=== PATIENT | female | born 1985 | race Caucasian/White ===

== ENCOUNTER 2017-05-02 17:35 | Outpatient (CLI) | payer OTHER ==
[~2017-05-02] VITALS: Ht 149.9 cm; Wt 51.3 kg
[2017-05-02 17:48] VITALS: BP 118/84; PULSE 107; RESP 18
[2017-05-02 17:50] VITALS: Ht 149.9 cm; Wt 51.3 kg
[2017-05-02 19:23] LABS: ADD UMIC YES; UR AMORPHOUS CRYSTAL MANY /HPF (NONE SEEN); UR ASCORBIC ACID NEGATIVE (NEGATIVE); UR BILIRUBIN (Dip) NEGATIVE (NEGATIVE); UR BLOOD (Dip) NEGATIVE (NEGATIVE); UR CLARITY TURBID (CLEAR); UR COLOR YELLOW (YELLOW); UR GLUCOSE (Dip) NEGATIVE (NEGATIVE); UR KETONES (Dip) NEGATIVE (NEGATIVE); UR LEUKOCYTE ESTERASE (Dip) NEGATIVE Leu/ul (NEGATIVE); UR NITRITE (Dip) NEGATIVE (NEGATIVE); UR RBC 0 /HPF (0-5); UR SPECIFIC GRAVITY (Dip) 1.016 (1.003-1.030); UR SQUAMOUS EPITHELIAL CELL FEW /HPF (FEW); UR TOTAL PROTEIN (Dip) NEGATIVE (NEGATIVE); UR UROBILINOGEN (Dip) NEGATIVE (NEGATIVE)
--- NOTE | 2017-05-02 19:28 | RADRPT ---
PROCEDURE: Obstetrical ultrasound CLINICAL INDICATION: back pain TECHNIQUE: Multiple sonographic images of the pelvis were obtained. The images were reviewed on a PACS workstation. COMPARISON: None FINDINGS: The cervix is not well visualized. There is a single viable intrauterine gestation. Cardiac activity is present with 134 beats per minute. There is a vertex presentation. The placenta is anterior. There is no evidence for an abruption or placenta previa. There is a subjectively normal amount of amniotic fluid. Measurements were made in order to determine age. The results are as follows (cm): BPD =6.65 HC =24.04 AC =20.47 FL =4.62 Estimated gestational age by ultrasound of approximately 25 weeks, 6 days. The estimated date of delivery by ultrasound is 08/09/2017. Estimated gestational age by LMP of approximately 24 weeks, 6 days. The estimated date of delivery by LMP is 08/16/2017. EFW = 800 grams (63rd percentile) IMPRESSION: Single viable intrauterine gestation of approximately 25 weeks, 6 days . The estimated date of delivery is 08/09/2017 . Dating by ultrasound is within 1 week of dating by LMP. Cephalic presentation. Estimated weight is 800 g which is in the 63rd percentile. Anterior placenta without evidence of an abruption. RPTAT: EE Physician Cynthia Date Time Electronically viewed and signed by Physician Cynthia on 05/02/2017 19:28 /
--- NOTE | 2017-05-02 19:30 | RADRPT ---
PROCEDURE: Retroperitoneal US. CLINICAL INDICATION: back pain TECHNIQUE: Multiple sonographic images of the retroperitoneum were obtained. The images were revi ewed on a PACS workstation. COMPARISON: No prior studies are available for comparison. FINDINGS: The right kidney measures 12.5 x 4.6 x 5.8 cm. The left kidney measures 8.5 x 5.1 x 6.4 cm. The renal parenchymal echotexture is normal. There is fullness of bilateral renal collecting systems without ananda hydronephrosis. There is no focal renal mass or calcification seen. The bladder is unremarkable. Prevoid bladder volume (mL): 127 IMPRESSION: Fullness of bilateral renal collecting systems without ananda hydronephrosis. RPTAT: EE Physician Cynthia Date Time Electronically viewed and signed by Physician Cynthia on 05/02/2017 19:30 /
--- NOTE | 2017-05-02 20:45 | TRIAGE ---
OB Triage Datetime Report Generated by CPN: 05/02/2017 20:45 Datetime: 05/02/2017 20:15 Stage of : OB Triage Datetime: 05/02/2017 20:05 Stage of : OB Triage Pain Assessment Pain Scale: 0 Pain Presence: None/Denies Datetime: 05/02/2017 19:47 Labor Evaluation Frequency: NONE Monitor Mode: External Pattern: Normal: <= 5 Contractions in 10 Minutes Resting Tone [place]: Relaxed Heart Rate FHR Baseline Rate: 140 Monitor Mode: External US Variability: Moderate 6-25 bpm Accelerations: 15X15 Decelerations: None Category: Category I Datetime: 05/02/2017 19:30 Assessment Type: Admission Assessment Maternal Assessment Level of Consciousness: Fully Conscious DTR's/Clonus: DTRs 2+; No Clonus Headache: Denies Blurred Vision: No Respiratory Effort: Unlabored; Regular Rhythm; Equal Expansion Breath Sounds, Left: Clear and Equal Breath Sounds, Right: Clear and Equal Nausea/Vomiting: Denies RUQ Epigastric Pain: Denies Lower Extremities Edema: None Degree: None Upper Extremities Edema: None Degree: None Facial Edema: None Fall Risk Assessment History of Falling: (0) No Secondary Diagnosis: (0) No Ambulatory Aid: (0) Bedrest/Nurse Assist IV Therapy: (0) No Gait: (0) Normal/Bedrest/Immobile Mental Status: (0) Oriented to Own Ability Fall Score: 0 Fall Risk Score Definition: No Risk: No action required Datetime: 05/02/2017 18:28 EGA: 24.6 Datetime: 05/02/2017 18:26 Labor Evaluation Frequency: 0 Monitor Mode: External Pattern: Normal: <= 5 Contractions in 10 Minutes Resting Tone [place]: Relaxed Heart Rate FHR Baseline Rate: 140 Monitor Mode: External US Variability: Moderate 6-25 bpm Accelerations: 15X15 Decelerations: None Category: Category I Datetime: 05/02/2017 17:58 Stage of : OB Triage Assessment Type: Admission Assessment Maternal Assessment Level of Consciousness: Fully Conscious DTR's/Clonus: DTRs 2+; No Clonus Headache: Denies Blurred Vision: No Respiratory Effort: Unlabored; Regular Rhythm; Equal Expansion Breath Sounds, Left: Clear and Equal Breath Sounds, Right: Clear and Equal Nausea/Vomiting: Denies RUQ Epigastric Pain: Denies Lower Extremities Edema: None Degree: None Upper Extremities Edema: None Degree: None Facial Edema: None Fall Risk Assessment History of Falling: (0) No Secondary Diagnosis: (0) No Ambulatory Aid: (0) Bedrest/Nurse Assist IV Therapy: (0) No Gait: (0) Normal/Bedrest/Immobile Mental Status: (0) Oriented to Own Ability Fall Score: 0 Fall Risk Score Definition: No Risk: No action required Datetime: 05/02/2017 17:54 Time of Arrival: 05/02/2017 17:52 Arrived By: Ambulatory Arrived From: Home Chief Complaint: BACK PAIN; VAGINAL ITCHING SINCE 10 DAYS Movement: Present Contractions: Denies/Absent Rupture of Membranes: Denies Vaginal Bleeding: None Vaginal Discharge: Denies Recent Sexual Intercouse: Denies Abdominal Trauma: Not Applicable Patient Complaints: Back Pain Time Provider Notified: 05/02/2017 18:30 Provider Notified: ESHAGHIAN Initial Plan: TOCO/US, EFW, RENAL U/S, U/A Datetime: 05/02/2017 17:42 Stage of : OB Triage Pain Assessment Pain Scale: 8 Pain Presence: Intermittent Pain Type: Ache Pain Location: Back Pain Relief Measures: Comfort Measures
--- NOTE | 2017-05-02 21:12 | PN ---
Triage Information Date/Time Reason for visit: Back pain Weeks of Gestation 24 6/7 /Para Diabetes: none Hypertention: none Additional information 31 Year-old with SIUP at 24 6/7 weeks presents with a chief complaint of back pain. She has been receiving her care with Dr Arreguin . She states good movement. She denies nausea, vomiting, shortness of breath, chest pain, headache, visual changes, vaginal bleeding or LOF. Objective Vital Signs Date Time Temp Pulse Resp B/P Pulse Ox O2 Delivery O2 Flow Rate FiO2 05/02/17 17:48 98.7 107 18 118/84 99 Room Air Heart Rate: 130's Contractions: None Exam General: Patient appears well, alert and oriented, NAD, appropriate mood and affect ABD: gravid, soft, non-tender. Back: No CVA tenderness (B/L) LE: No clubbing, cyanosis, edema, thigh or calf tenderness bilaterally FHT: 135 bpm , moderate variability with acceleration, no deceleration-category I Contractions: None Results/Medications Results 24 hrs Laboratory Tests Test 05/02/17 18:00 Urine Color YELLOW Urine Clarity TURBID A Urine pH 8.0 Urine Specific Hosmer 1.016 Urine Ketones NEGATIVE Urine Nitrite NEGATIVE Urine Bilirubin NEGATIVE Urine Urobilinogen NEGATIVE Urine Leukocyte Esterase NEGATIVE Urine Microscopic RBC 0 Urine Microscopic WBC 0 Urine Squamous Epithelial Cells FEW Urine Amorphous Crystals MANY A Urine Hemoglobin NEGATIVE Urine Glucose NEGATIVE Urine Total Protein NEGATIVE Assessment/Plan 31 Year-old with SIUP at 24 6/7 weeks with back pain - FHR: No sign of metabolic acidosis- Category I - Continuous EFM, toco - Contractions: None. - US performed - Symptoms and sign of labor, preeclampsia, kick count discussed with patient, she voiced understanding. All of her questions answered. - Patient was discharged home in stable condition with the appropriate discharge instructions provided. I would like patient to have close follow-up with her primary physician or outpatient clinic in 1-2 days or return to the ER for worsening symptoms or any other urgent concerns. WILLEM CARUSO May 02, 2017 21:12
== END 2017-05-02 20:44 | disposition home or self-care (01) ==
LOC: E/R 17:35 → L-D 17:35 → E/R 20:44
PROVIDERS: ATTEND Obstetrics & Gynecology
DX: O26.892 Other specified pregnancy related conditions, second trimester (principal); Z3A.24 24 weeks gestation of pregnancy; M54.9 Dorsalgia, unspecified
CPT/HCPCS: 76775; 76815; 81001; G0463